=== PATIENT | male | born 1945 | race Caucasian/White ===

== ENCOUNTER 2018-02-08 12:19 | Emergency (ER) | payer MEDICARE, BC ==
--- NOTE | 2018-02-08 13:38 | EDM.PDOC ---
ED HPI GENERAL MEDICAL PROBLEM - General Chief Complaint: Upper Extremity Injury/Pain Stated Complaint: LEFT SHOULDER Time Seen by Provider: 02/08/18 13:25 Source of Information: Reports: Patient History Limitations: Reports: No Limitations - History of Present Illness INITIAL COMMENTS - FREE TEXT/NARRATIVE: This 72 yo male patient came into the ED due to left shoulder pain and inability to raise his arm. The patient reports that he was walking through his camper this morning with the slide outs in and his his shoulder on the slide out. The patient has had increased pain and the inability to abduct his arm since the injury. 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 Left Shoulder Pain Score (Numeric/FACES): 2 - Related Data Allergies Allergy/AdvReac Type Severity Reaction Status Date / Time No Known Allergies Allergy Verified 02/08/18 13:06 Home Meds: Home Meds Aspirin [Halfprin] 81 mg PO DAILY 02/08/18 [History] Bumetanide 2 mg PO BID 02/08/18 [History] Carvedilol [Coreg] 25 mg PO BID 02/08/18 [History] Losartan/Hydrochlorothiazide [Hyzaar 100-25 Tablet] 1 tab PO DAILY 02/08/18 [ History] Nitroglycerin [Nitrostat] 0.4 mg PO ASDIRECTED PRN 02/08/18 [History] Potassium Chloride 40 meq PO BID 02/08/18 [History] amLODIPine Besylate [Norvasc] 10 mg PO DAILY 02/08/18 [History] atorvaSTATin [Lipitor] 20 mg PO DAILY 02/08/18 [History] metFORMIN [Glucophage XR] 1,000 mg PO BID 02/08/18 [History] Past Medical History HEENT History: Reports: Impaired Vision Other HEENT History: wears glasses Cardiovascular History: Reports: Stents Respiratory History: Reports: None Gastrointestinal History: Reports: None Genitourinary History: Reports: None Musculoskeletal History: Reports: Back Pain, Chronic Neurological History: Reports: None Psychiatric History: Reports: None Endocrine/Metabolic History: Reports: Diabetes, Type II Hematologic History: Reports: None Immunologic History: Reports: None Oncologic (Cancer) History: Reports: None Dermatologic History: Reports: None - Infectious Disease History Infectious Disease History: Reports: Measles - Past Surgical History Head Surgeries/Procedures: Reports: None HEENT Surgical History: Reports: Tonsillectomy Musculoskeletal Surgical History: Reports: Knee Replacement Social & Family History - Tobacco Use Smoking Status *Q: Current Every Day Smoker Years of Tobacco use: 60 Packs/Tins Daily: 1 Second Hand Smoke Exposure: No - Caffeine Use Caffeine Use: Reports: None - Recreational Drug Use Recreational Drug Use: No Review of Systems - Review of Systems Review Of Systems: ROS reveals no pertinent complaints other than HPI. ED EXAM, GENERAL - Physical Exam Exam: See Below Exam Limited By: No Limitations General Appearance: Alert, WD/WN, Moderate Distress Eye Exam: Bilateral Eye: EOMI, Normal Inspection, PERRL Ears: Normal External Exam, Normal Canal, Hearing Grossly Normal, Normal TMs Nose: Normal Inspection, Normal Mucosa, No Blood Throat/Mouth: Normal Inspection, Normal Lips, Normal Teeth, Normal Gums, Normal Oropharynx, Normal Voice, No Airway Compromise Head: Atraumatic, Normocephalic Neck: Normal Inspection, Supple, Non-Tender, Full Range of Motion Respiratory/Chest: No Respiratory Distress, Lungs Clear, Normal Breath Sounds, No Accessory Muscle Use, Chest Non-Tender Cardiovascular: Normal Peripheral Pulses, Regular Rate, Rhythm, No Edema, No Gallop, No JVD, No Murmur, No Rub GI/Abdominal: Normal Bowel Sounds, Soft, Non-Tender, No Organomegaly, No Distention, No Abnormal Bruit, No Mass (Male) Exam: Deferred Rectal (Males) Exam: Deferred Back Exam: Normal Inspection, Full Range of Motion, NT Extremities: Normal Inspection, Non-Tender, No Pedal Edema, Normal Capillary Refill, Arm Pain (left shoulder pain), Limited Range of Motion (pain with abduction) Neurological: Alert, Oriented, CN II-XII Intact, Normal Cognition, Normal Gait, Normal Reflexes, No Motor/Sensory Deficits Psychiatric: Normal Affect, Normal Mood Skin Exam: Warm, Dry, Intact, Normal Color, No Rash Lymphatic: No Adenopathy Course - Vital Signs Last Recorded V/S: Last Vital Signs Temp 36.3 C 02/08/18 12:56 Pulse 70 02/08/18 12:56 Resp 16 02/08/18 12:56 BP 141/77 H 02/08/18 12:56 Pulse Ox 96 02/08/18 12:56 Departure - Departure Time of Disposition: 14:01 Disposition: Home, Self-Care 01 Condition: Fair Clinical Impression: Left shoulder strain Qualifiers: Encounter type: initial encounter Qualified Code(s): S46.912A - Strain of unspecified muscle, fascia and tendon at shoulder and upper arm level, left arm , initial encounter - Discharge Information Instructions: Shoulder Pain, [id number], How to Use a Sling, [id number], Muscle Strain, [id number] Forms: ED Department Discharge Care Plan Goals: The patient was advised of the examination and x-ray results during the visit. The patient was placed in a sling for support of his arm and shoulder. The patient was encouraged to rest and ice the shoulder. If the patient continues to have pain with movement, the patient should follow-up with his primary care facility, resource recovery specialist or return to the emergency department.
--- NOTE | 2018-02-08 13:55 | CR ---
Clinical history: 72-year-old male injured (hit) left shoulder this morning. Dislocation? Interpretation: 3 views left shoulder confirm chronic arthritic changes acromioclavicular joint and e levation of the humeral head suggesting possible rotator cuff damage i.e. impingement or tear. No juxta-articular soft tissue calcification identified in the course of the rotator cuff tendon. No sign of pathologic skeletal lesion, acute left shoulder fracture, acromioclavicular separation or glenohumeral dislocation. Left lung apex clear. CONCLUSION: Possible rotator cuff injury. Clinical? No acute fracture or dislocation left shoulder. A rthritis A-C joint.
== END 2018-02-08 14:11 | disposition home or self-care (01) ==
LOC: DL.ED 12:19
DX: S46.912A Strain of unspecified muscle, fascia and tendon at shoulder and upper arm level, left arm, initial encounter (principal); E11.9 Type 2 diabetes mellitus without complications; F17.210 Nicotine dependence, cigarettes, uncomplicated; X50.9XXA Other and unspecified overexertion or strenuous movements or postures, initial encounter; Z79.82 Long term (current) use of aspirin; Z79.899 Other long term (current) drug therapy
CPT/HCPCS: 73030-LT; 99284